=== PATIENT | female | born 2005 | race Caucasian/White ===

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

== ENCOUNTER → 2024-10-21 | Outpatient (REF) | payer OTHER ==
[~2024-10-21] MED LIST: LARI1TAB5
== END ==
LOC: M SFHCWAGY 17:05
PROVIDERS: ATTEND Advanced Practice Midwife
DX: Z12.4 Encounter for screening for malignant neoplasm of cervix (principal)